=== PATIENT | male | born 1955 | race Caucasian/White ===

== ENCOUNTER 2019-08-20 11:54 | Emergency (ER) | payer OTHER ==
[~2019-08-20] VITALS: Ht 182.9 cm; Wt 117.9 kg
[2019-08-20] MEDS ORDERED: MEDROLPACK PO (18:01)
[2019-08-20] MEDS ORDERED: INTESTINEX680 M1 PO (18:01)
[2019-08-20] MEDS ORDERED: CLINDAMYCIN HC300 MG PO (18:01)
== END 2019-08-20 18:20 ==
LOC: ER 11:54
DX: K22.5 Diverticulum of esophagus, acquired (principal); J03.80 Acute tonsillitis due to other specified organisms